=== PATIENT | male | born 1950 | race Two or more races ===

== ENCOUNTER 2020-11-09 11:55 | Emergency (ER) | payer BC ==
[~2020-11-09] VITALS: Ht 177.8 cm; Wt 88.5 kg
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
[2020-11-09] MEDS ORDERED: IBUP-1957 PO (13:28)
[2020-11-09] MEDS ORDERED: LIDOCAINE HCL/PF 1% 30 ML SDV ONE (15:27)
--- NOTE | 2020-11-09 17:02 | NUR ---
Patient discharged to home in stable condition. Written and verbal after care instructions given. Patient verbalizes understanding of instruction. Pt ambulatory with a steady gait
[2020-11-09 17:03] VITALS: BP 137/78
[2020-11-10] MEDS ORDERED: FENTANYL PF 100MCG/2ML AMPUL ONE (15:19)
== END 2020-11-09 17:04 | disposition home or self-care (01) ==
LOC: ER 12:08
DX: S01.21XA Laceration without foreign body of nose, initial encounter (principal); M25.511 Pain in right shoulder; I10 Essential (primary) hypertension; Z98.890 Other specified postprocedural states; Y04.0XXA Assault by unarmed brawl or fight, initial encounter; Y93.89 Activity, other specified; Y92.89 Other specified places as the place of occurrence of the external cause; Y99.8 Other external cause status
CPT/HCPCS: 12013; 70450; 73030; 99284; A6403; J3490; J3010